=== PATIENT | male | born 1930 | race Caucasian/White ===

== ENCOUNTER 2017-10-06 20:42 | Emergency (ER) | payer MEDICARE, OTHER ==
[~2017-10-06] VITALS: Ht 185.4 cm; Wt 86.4 kg
[~2017-10-06 20:42] MED LIST: DOCU-28 PO; SIME180C34 PO
[2017-10-06 21:30] LABS: BASOPHILS % (AUTO) 0.4 % (0-1); EOSINOPHILS # (AUTO) 0.1 X10'3 (0-0.9); EOSINOPHILS % (AUTO) 1.3 % (0-6); HEMATOCRIT 35.2 % (42.0-52.0); HEMOGLOBIN 11.9 g/dl (14.0-17.9); LYMPHOCYTES # (AUTO) 1.6 X10'3 (1.1-4.8); LYMPHOCYTES % (AUTO) 19.6 % (21-51); MEAN CORPUSCULAR HEMOGLOBIN 30.4 PG (27.0-31.0); MEAN CORPUSCULAR HGB CONC 33.9 % (33.0-36.5); MEAN CORPUSCULAR VOLUME 89.9 FL (78-98); MEAN PLATELET VOLUME 7.7 FL (7.4-10.4); MONOCYTES # (AUTO) 0.6 X10'3 (0-0.9); NEUTROPHILS # (AUTO) 5.7 X10'3 (1.8-7.7); NEUTROPHILS % (AUTO) 70.7 % (42-75); PLATELET COUNT 151 X10'3 (140-440); RED BLOOD COUNT 3.92 X10'6 (4.70-6.10); RED CELL DISTRIBUTION WIDTH 17.5 % (11.5-14.5)
[2017-10-06 21:38] LABS: ALANINE AMINOTRANSFERASE 39 U/L (12-78); ALBUMIN 3.2 G/DL (3.4-5.0); ALBUMIN/GLOBULIN RATIO 0.9 (1.1-1.5); ALKALINE PHOSPHATASE 95 IU/L (46-116); ANION GAP 9 (8-16); ASPARTATE AMINO TRANSFERASE 27 U/L (10-37); BILIRUBIN,TOTAL 0.3 MG/DL (0.1-1.0); BLOOD UREA NITROGEN 15 MG/DL (7-18); CALCIUM 9.2 MG/DL (8.5-10.1); CHLORIDE 101 MMOL/L (99-107); CREATININE 1.66 MG/DL (0.60-1.10); GLUCOSE 123 MG/DL (70-104); POTASSIUM 4.5 MMOL/L (3.5-5.1); SODIUM 135 MMOL/L (135-145); TOTAL PROTEIN 6.9 G/DL (6.4-8.2); eGFR 40 ML/MIN
[2017-10-06 21:54] VITALS: BP 117/66
[2017-10-06] MEDS ORDERED: HYDROcodone/acetaminophen 5mg/325mg tablet PO STA (21:57)
[2017-10-06] MEDS ORDERED: HYDROcodone/acetaminophen 5mg/325mg tablet PO ONE (22:30)
[2017-10-06] MEDS ORDERED: HYDR-565 PO (23:02)
== END 2017-10-06 23:07 | disposition home or self-care (01) ==
LOC: ER 20:43
DX: I97.638 Postprocedural hematoma of a circulatory system organ or structure following other circulatory system procedure (principal); I25.2 Old myocardial infarction; Z95.0 Presence of cardiac pacemaker; Z98.890 Other specified postprocedural states
CPT/HCPCS: 36415; 71046; 80053; 83605; 85025; 87040; 99285

== ENCOUNTER 2018-03-21 14:59 | Emergency (ER) | payer MEDICARE, OTHER ==
[~2018-03-21] VITALS: Ht 185.4 cm; Wt 91.2 kg
[2018-03-21 15:40] LABS: BASOPHILS % (AUTO) 0.2 % (0-1); EOSINOPHILS # (AUTO) 0.1 X10'3 (0-0.9); EOSINOPHILS % (AUTO) 1.8 % (0-6); HEMATOCRIT 34.9 % (42.0-52.0); HEMOGLOBIN 11.4 g/dl (14.0-17.9); LYMPHOCYTES # (AUTO) 0.7 X10'3 (1.1-4.8); LYMPHOCYTES % (AUTO) 13.8 % (21-51); MEAN CORPUSCULAR HEMOGLOBIN 30.9 PG (27.0-31.0); MEAN CORPUSCULAR HGB CONC 32.7 % (33.0-36.5); MEAN CORPUSCULAR VOLUME 94.4 FL (78-98); MEAN PLATELET VOLUME 7.5 FL (7.4-10.4); MONOCYTES # (AUTO) 0.4 X10'3 (0-0.9); MONOCYTES % (AUTO) 7.4 % (2-12); NEUTROPHILS % (AUTO) 76.8 % (42-75); PLATELET COUNT 196 X10'3 (140-440); RED CELL DISTRIBUTION WIDTH 13.3 % (11.5-14.5); WHITE BLOOD COUNT 5.2 X10'3 (4.5-11.0)
[2018-03-21 15:57] LABS: ALANINE AMINOTRANSFERASE 64 U/L (12-78); ALBUMIN 3.4 G/DL (3.4-5.0); ALKALINE PHOSPHATASE 86 IU/L (46-116); ANION GAP 8 (8-16); ASPARTATE AMINO TRANSFERASE 35 U/L (10-37); BILIRUBIN,TOTAL 0.4 MG/DL (0.1-1.0); BLOOD UREA NITROGEN 20 MG/DL (7-18); BUN/CREATININE RATIO 11.8 (5.4-32.0); CALCIUM 8.6 MG/DL (8.5-10.1); CHLORIDE 100 MMOL/L (99-107); CREATININE 1.69 MG/DL (0.60-1.10); GLUCOSE 123 MG/DL (70-104); POTASSIUM 4.3 MMOL/L (3.5-5.1); SODIUM 135 MMOL/L (135-145); TOTAL PROTEIN 6.8 G/DL (6.4-8.2); eGFR 39 ML/MIN
[2018-03-21 16:23] LABS: INR 1.2 INR; PARTIAL THROMBOPLASTIN TIME 32 SECONDS (22-32); PROTHROMBIN TIME 12.4 SECONDS (9.0-12.0)
[2018-03-21] MEDS ORDERED: furosemide 10 MG/1 ML 10ml inj IV ONE (18:30)
[2018-03-21] MEDS ORDERED: FURO40TA4 PO (18:48)
[2018-03-21 19:02] VITALS: BP 110/61
== END 2018-03-21 19:03 | disposition home or self-care (01) ==
LOC: ER 15:00
DX: E87.70 Fluid overload, unspecified (principal); R06.02 Shortness of breath; R07.89 Other chest pain; I25.10 Atherosclerotic heart disease of native coronary artery without angina pectoris; I25.2 Old myocardial infarction; Z95.0 Presence of cardiac pacemaker; Z79.899 Other long term (current) drug therapy
CPT/HCPCS: 36415; 71045; 80053; 83880; 84145; 85025; 85610; 85730; 93005; 96374; 99284; J1940

== ENCOUNTER 2018-04-14 16:43 | Emergency (ER) | payer MEDICARE, OTHER ==
[~2018-04-14] VITALS: Ht 185.4 cm; Wt 89.1 kg
[~2018-04-14 16:43] MED LIST changes: +FURO40TA4 PO
[2018-04-14 18:12] LABS: BASOPHILS % (AUTO) 0.3 % (0-1); EOSINOPHILS # (AUTO) 0.1 X10'3 (0-0.9); HEMOGLOBIN 12.4 g/dl (14.0-17.9); LYMPHOCYTES # (AUTO) 0.8 X10'3 (1.1-4.8); LYMPHOCYTES % (AUTO) 10.9 % (21-51); MEAN CORPUSCULAR HEMOGLOBIN 30.7 PG (27.0-31.0); MEAN CORPUSCULAR HGB CONC 32.6 % (33.0-36.5); MEAN CORPUSCULAR VOLUME 94.2 FL (78-98); MEAN PLATELET VOLUME 7.9 FL (7.4-10.4); MONOCYTES # (AUTO) 0.6 X10'3 (0-0.9); MONOCYTES % (AUTO) 7.8 % (2-12); PLATELET COUNT 230 X10'3 (140-440); RED BLOOD COUNT 4.04 X10'6 (4.70-6.10); RED CELL DISTRIBUTION WIDTH 12.7 % (11.5-14.5); WHITE BLOOD COUNT 7.5 X10'3 (4.5-11.0)
[2018-04-14 18:28] LABS: ALANINE AMINOTRANSFERASE 48 U/L (12-78); ALBUMIN 3.5 G/DL (3.4-5.0); ALBUMIN/GLOBULIN RATIO 0.9 (1.1-1.5); ALKALINE PHOSPHATASE 101 IU/L (46-116); ANION GAP 12 (8-16); ASPARTATE AMINO TRANSFERASE 30 U/L (10-37); BILIRUBIN,TOTAL 0.4 MG/DL (0.1-1.0); BLOOD UREA NITROGEN 21 MG/DL (7-18); BUN/CREATININE RATIO 13.6 (5.4-32.0); CALCIUM 8.6 MG/DL (8.5-10.1); CHLORIDE 95 MMOL/L (99-107); CREATININE 1.54 MG/DL (0.60-1.10); GLUCOSE 99 MG/DL (70-104); POTASSIUM 3.9 MMOL/L (3.5-5.1); SODIUM 133 MMOL/L (135-145); TOTAL CARBON DIOXIDE 26.1 MMOL/L (24-32); TOTAL PROTEIN 7.4 G/DL (6.4-8.2); eGFR 43 ML/MIN
[2018-04-14] MEDS ORDERED: AZIT250T83 PO (18:30)
[2018-04-14] MEDS ORDERED: METH4TAB81 PO (18:30)
[2018-04-14 18:43] VITALS: BP 110/64
== END 2018-04-14 18:47 | disposition home or self-care (01) ==
LOC: ER 16:43
DX: J20.9 Acute bronchitis, unspecified (principal); I50.9 Heart failure, unspecified; I25.10 Atherosclerotic heart disease of native coronary artery without angina pectoris; I25.2 Old myocardial infarction; Z90.5 Acquired absence of kidney; Z95.0 Presence of cardiac pacemaker
CPT/HCPCS: 36415; 71046; 80053; 83605; 85025; 87040; 99284

== ENCOUNTER 2019-05-08 16:36 | Inpatient (IN) | payer MEDICARE, OTHER ==
[~2019-05-08] VITALS: Ht 185.4 cm; Wt 93.3 kg
[~2019-05-08 16:36] MED LIST changes: +AMIO200T61 PO; +ATOR80TA PO; +CHOL10002 PO; -DOCU-28 PO; +FINA5TAB11 PO; -FURO40TA4 PO; +LOSA25TA96 PO; +METO50TA7 PO; +NITR0.4T51 SL; +RIVA15TA PO; -SIME180C34 PO; +SPIR25TA5 PO; +TRAZ-251 PO
[2019-05-08 17:16] LABS: BASOPHILS % (AUTO) 0.3 % (0-1); EOSINOPHILS % (AUTO) 0.5 % (0-6); HEMATOCRIT 35.8 % (42.0-52.0); HEMOGLOBIN 11.9 g/dl (14.0-17.9); LYMPHOCYTES # (AUTO) 0.7 X10'3 (1.1-4.8); LYMPHOCYTES % (AUTO) 11.2 % (21-51); MEAN CORPUSCULAR HEMOGLOBIN 30.7 PG (27.0-31.0); MEAN CORPUSCULAR HGB CONC 33.2 g/dL (33.0-36.5); MEAN CORPUSCULAR VOLUME 92.4 FL (78-98); MEAN PLATELET VOLUME 7.9 FL (7.4-10.4); MONOCYTES # (AUTO) 0.5 X10'3 (0-0.9); MONOCYTES % (AUTO) 8.1 % (2-12); NEUTROPHILS # (AUTO) 5.2 X10'3 (1.8-7.7); NEUTROPHILS % (AUTO) 79.9 % (42-75); PLATELET COUNT 182 X10'3 (140-440); RED BLOOD COUNT 3.88 X10'6 (4.70-6.10); RED CELL DISTRIBUTION WIDTH 13.5 % (11.5-14.5); WHITE BLOOD COUNT 6.5 X10'3 (4.5-11.0)
[2019-05-08 17:30] LABS: ALANINE AMINOTRANSFERASE 49 U/L (12-78); ALBUMIN 3.7 G/DL (3.4-5.0); ALBUMIN/GLOBULIN RATIO 1.2 (1.1-1.5); ALKALINE PHOSPHATASE 90 IU/L (46-116); ANION GAP 6 (8-16); ASPARTATE AMINO TRANSFERASE 36 U/L (10-37); BILIRUBIN,TOTAL 0.5 MG/DL (0.1-1.0); BLOOD UREA NITROGEN 22 MG/DL (7-18); BUN/CREATININE RATIO 12.9 (5.4-32.0); CALCIUM 8.7 MG/DL (8.5-10.1); CHLORIDE 98 MMOL/L (99-107); GLUCOSE 96 MG/DL (70-104); POTASSIUM 3.8 MMOL/L (3.5-5.1); SODIUM 133 MMOL/L (135-145); TOTAL CARBON DIOXIDE 29.4 MMOL/L (24-32); TOTAL PROTEIN 6.9 G/DL (6.4-8.2); eGFR 38 ML/MIN
[2019-05-08] MEDS ORDERED: morphine 2 MG/ML inj. syringe IV PRN ×2 (17:55)
[2019-05-08] MEDS ORDERED: acetaminophen 325mg tablet PO PRN (17:55)
[2019-05-08] MEDS ORDERED: magnesium hydroxide 30ml (MOM) UD suspension PO PRN (17:55)
[2019-05-08] MEDS ORDERED: ondansetron/PF 4mg/2ml inj IV PRN (17:55)
[2019-05-08] MEDS ORDERED: mag hydrox/Alum hydrox/simeth 30ml oral suspension PO PRN (17:55)
[2019-05-08] MEDS ORDERED: FURO-150 PO ×2 (18:06→18:08)
[2019-05-08] MEDS ORDERED: furosemide 20 MG/2 ML vial IV SCH (20:00)
[2019-05-08] MEDS: acetaminophen 325mg tablet PO PRN (20:45)
[2019-05-08 22:00] VITALS: BP 104/57
[2019-05-09 02:00] VITALS: BP 103/54
[2019-05-09] MEDS: acetaminophen 325mg tablet PO PRN (04:50)
[2019-05-09 05:34] LABS: ALBUMIN 3.3 G/DL (3.4-5.0); ANION GAP 8 (8-16); BLOOD UREA NITROGEN 22 MG/DL (7-18); BUN/CREATININE RATIO 13.3 (5.4-32.0); CALCIUM 8.9 MG/DL (8.5-10.1); CHLORIDE 101 MMOL/L (99-107); CREATININE 1.65 MG/DL (0.60-1.10); GLUCOSE 97 MG/DL (70-104); POTASSIUM 3.5 MMOL/L (3.5-5.1); SODIUM 135 MMOL/L (135-145); TOTAL CARBON DIOXIDE 26.4 MMOL/L (24-32); eGFR 40 ML/MIN
[2019-05-09 05:51] LABS: BASOPHILS % (AUTO) 0.4 % (0-1); EOSINOPHILS # (AUTO) 0.1 X10'3 (0-0.9); EOSINOPHILS % (AUTO) 1.2 % (0-6); HEMATOCRIT 33.3 % (42.0-52.0); HEMOGLOBIN 11.2 g/dl (14.0-17.9); LYMPHOCYTES # (AUTO) 0.8 X10'3 (1.1-4.8); LYMPHOCYTES % (AUTO) 18.4 % (21-51); MEAN CORPUSCULAR HEMOGLOBIN 31.2 PG (27.0-31.0); MEAN CORPUSCULAR HGB CONC 33.8 g/dL (33.0-36.5); MEAN CORPUSCULAR VOLUME 92.5 FL (78-98); MEAN PLATELET VOLUME 7.8 FL (7.4-10.4); MONOCYTES # (AUTO) 0.4 X10'3 (0-0.9); MONOCYTES % (AUTO) 9.1 % (2-12); NEUTROPHILS % (AUTO) 70.9 % (42-75); PLATELET COUNT 145 X10'3 (140-440); RED CELL DISTRIBUTION WIDTH 13.6 % (11.5-14.5); WHITE BLOOD COUNT 4.3 X10'3 (4.5-11.0)
[2019-05-09 06:00] VITALS: BP 119/65
--- NOTE | 2019-05-09 06:21 | NUR ---
Problems reprioritized. Patient report given to Duncan, questions answered & plan of care reviewed with .
--- NOTE | 2019-05-09 06:57 | NUR ---
Patient in room [facility] 310. I have received report from Keron WOOD and had the opportunity to ask questions and assume patient care.
[2019-05-09] MEDS ORDERED: traZODone 50mg tablet PO PRN (08:30)
[2019-05-09] MEDS ORDERED: nitroGLYCERIN 0.4mg SUBLingual tab SL PRN (08:30)
[2019-05-09] MEDS: furosemide 20 MG/2 ML vial IV SCH ×2 (09:38→20:28)
[2019-05-09] MEDS: spironolactone 25 MG tablet PO SCH (09:43)
[2019-05-09] MEDS: losartan 25mg tablet PO SCH (09:44)
[2019-05-09 11:00] VITALS: BP 129/66
[2019-05-09] MEDS: HYDROcodone/acetaminophen 5mg/325mg tablet PO PRN ×2 (11:59→17:42)
[2019-05-09] MEDS: finasteride 5mg tablet PO SCH (12:00)
[2019-05-09 15:00] VITALS: BP 136/53
[2019-05-09] MEDS ORDERED: VOLTAREN 1% TOP PRN (17:00)
[2019-05-09 18:00] VITALS: BP 108/52
[2019-05-09] MEDS ORDERED: rivaroxaban 15mg tablet PO SCH (18:00)
[2019-05-09] MEDS ORDERED: amiodarone 200mg tablet PO SCH (21:00)
[2019-05-09] MEDS ORDERED: atorvastatin 20mg tablet PO SCH (21:00)
[2019-05-09] MEDS ORDERED: metoprolol succinate 25mg (24-HOUR) SR. Tablet PO SCH (21:00)
[2019-05-09 22:00] VITALS: BP 104/60
[2019-05-10 02:00] VITALS: BP 110/59
[2019-05-10 05:27] LABS: ALBUMIN 3.2 G/DL (3.4-5.0); ANION GAP 5 (8-16); BLOOD UREA NITROGEN 20 MG/DL (7-18); BUN/CREATININE RATIO 13.5 (5.4-32.0); CALCIUM 8.7 MG/DL (8.5-10.1); CHLORIDE 102 MMOL/L (99-107); CREATININE 1.48 MG/DL (0.60-1.10); GLUCOSE 96 MG/DL (70-104); POTASSIUM 3.7 MMOL/L (3.5-5.1); SODIUM 137 MMOL/L (135-145); TOTAL CARBON DIOXIDE 29.8 MMOL/L (24-32); eGFR 45 ML/MIN
[2019-05-10 05:42] LABS: BASOPHILS % (AUTO) 0.7 % (0-1); EOSINOPHILS # (AUTO) 0.1 X10'3 (0-0.9); EOSINOPHILS % (AUTO) 2.2 % (0-6); HEMATOCRIT 33.8 % (42.0-52.0); HEMOGLOBIN 11.5 g/dl (14.0-17.9); LYMPHOCYTES # (AUTO) 0.7 X10'3 (1.1-4.8); LYMPHOCYTES % (AUTO) 16.5 % (21-51); MEAN CORPUSCULAR HEMOGLOBIN 31.2 PG (27.0-31.0); MEAN CORPUSCULAR HGB CONC 33.9 g/dL (33.0-36.5); MEAN CORPUSCULAR VOLUME 91.9 FL (78-98); MEAN PLATELET VOLUME 8.3 FL (7.4-10.4); MONOCYTES # (AUTO) 0.3 X10'3 (0-0.9); MONOCYTES % (AUTO) 7.5 % (2-12); NEUTROPHILS # (AUTO) 3.2 X10'3 (1.8-7.7); NEUTROPHILS % (AUTO) 73.1 % (42-75); PLATELET COUNT 149 X10'3 (140-440); RED BLOOD COUNT 3.68 X10'6 (4.70-6.10); RED CELL DISTRIBUTION WIDTH 13.3 % (11.5-14.5); WHITE BLOOD COUNT 4.4 X10'3 (4.5-11.0)
[2019-05-10 06:00] VITALS: BP 103/58
--- NOTE | 2019-05-10 06:14 | NUR ---
Patient in room [facility] 310. I have received report from yojana Carmona and had the opportunity to ask questions and assume patient care.
--- NOTE | 2019-05-10 06:42 | NUR ---
Problems reprioritized. Patient report given, questions answered & plan of care reviewed with Katheryn Beebe.
[2019-05-10] MEDS: losartan 25mg tablet PO SCH (07:33)
[2019-05-10] MEDS: finasteride 5mg tablet PO SCH (07:34)
[2019-05-10] MEDS: spironolactone 25 MG tablet PO SCH (07:34)
[2019-05-10] MEDS: HYDROcodone/acetaminophen 5mg/325mg tablet PO PRN ×2 (07:34→11:55)
[2019-05-10] MEDS: furosemide 20 MG/2 ML vial IV SCH (07:35)
[2019-05-10] MEDS ORDERED: losartan 25mg tablet PO SCH (08:00)
[2019-05-10] MEDS ORDERED: vitamin D (cholecalciferol) 1,000 unit tablet PO SCH (08:00)
[2019-05-10] MEDS ORDERED: spironolactone 25 MG tablet PO SCH (08:00)
[2019-05-10] MEDS ORDERED: finasteride 5mg tablet PO SCH (08:00)
[2019-05-10] MEDS ORDERED: FURO-150 PO (09:07)
== END 2019-05-10 11:57 | disposition home or self-care (01) | DRG 291 ==
LOC: ER 16:37 → ED HOLD 17:53 → EDBEDREQ 18:42 → MED 3N 19:25
PROVIDERS: ADMIT Internal Medicine; ATTEND Family Medicine
DX: I13.0 Hypertensive heart and chronic kidney disease with heart failure and stage 1 through stage 4 chronic kidney disease, or unspecified chronic kidney disease (principal); I50.43 Acute on chronic combined systolic (congestive) and diastolic (congestive) heart failure; J96.01 Acute respiratory failure with hypoxia; N17.0 Acute kidney failure with tubular necrosis; D50.9 Iron deficiency anemia, unspecified; E78.5 Hyperlipidemia, unspecified; G47.00 Insomnia, unspecified; I25.10 Atherosclerotic heart disease of native coronary artery without angina pectoris; I48.0 Paroxysmal atrial fibrillation; F32.9 Major depressive disorder, single episode, unspecified; M11.211 Other chondrocalcinosis, right shoulder; N18.3 Chronic kidney disease, stage 3 (moderate); Z79.01 Long term (current) use of anticoagulants; I25.2 Old myocardial infarction; Z86.79 Personal history of other diseases of the circulatory system; Z87.891 Personal history of nicotine dependence; Z79.899 Other long term (current) drug therapy
CPT/HCPCS: 36415; 71045; 73030; 80048; 80053; 83880; 84484; 85025; 87081; 93005; 93306; 96374; 99285; G0378; J1940; J2270

== ENCOUNTER 2019-11-05 15:01 | Emergency (ER) | payer OTHER, MEDICARE ==
[~2019-11-05] VITALS: Ht 185.4 cm; Wt 84.1 kg
[~2019-11-05 15:01] MED LIST changes: +FURO-150 PO
[2019-11-05 15:49] LABS: BASOPHILS % (AUTO) 0.6 % (0-1); EOSINOPHILS # (AUTO) 0.1 X10'3 (0-0.9); EOSINOPHILS % (AUTO) 1.5 % (0-6); HEMATOCRIT 38.1 % (42.0-52.0); HEMOGLOBIN 12.3 g/dl (14.0-17.9); LYMPHOCYTES # (AUTO) 0.9 X10'3 (1.1-4.8); LYMPHOCYTES % (AUTO) 17.2 % (21-51); MEAN CORPUSCULAR HEMOGLOBIN 29.7 PG (27.0-31.0); MEAN CORPUSCULAR HGB CONC 32.3 g/dL (33.0-36.5); MEAN CORPUSCULAR VOLUME 92.2 FL (78-98); MEAN PLATELET VOLUME 8.4 FL (7.4-10.4); MONOCYTES # (AUTO) 0.4 X10'3 (0-0.9); MONOCYTES % (AUTO) 7.4 % (2-12); NEUTROPHILS # (AUTO) 3.8 X10'3 (1.8-7.7); NEUTROPHILS % (AUTO) 73.3 % (42-75); PLATELET COUNT 146 X10'3 (140-440); RED BLOOD COUNT 4.13 X10'6 (4.70-6.10); RED CELL DISTRIBUTION WIDTH 15.3 % (11.5-14.5); WHITE BLOOD COUNT 5.2 X10'3 (4.5-11.0)
[2019-11-05 16:09] LABS: ALANINE AMINOTRANSFERASE 59 U/L (12-78); ALBUMIN 3.5 G/DL (3.4-5.0); ALKALINE PHOSPHATASE 97 IU/L (46-116); ANION GAP 9 (8-16); ASPARTATE AMINO TRANSFERASE 46 U/L (10-37); BILIRUBIN,TOTAL 0.5 MG/DL (0.1-1.0); BLOOD UREA NITROGEN 27 MG/DL (7-18); BUN/CREATININE RATIO 14.4 (5.4-32.0); CALCIUM 8.8 MG/DL (8.5-10.1); CHLORIDE 100 MMOL/L (99-107); CREATININE 1.87 MG/DL (0.60-1.10); GLUCOSE 105 MG/DL (70-104); POTASSIUM 4.5 MMOL/L (3.5-5.1); SODIUM 133 MMOL/L (135-145); TOTAL CARBON DIOXIDE 24.5 MMOL/L (24-32); TOTAL PROTEIN 7.1 G/DL (6.4-8.2); eGFR 34 ML/MIN
[2019-11-05] MEDS ORDERED: furosemide 10 MG/1 ML 10ml inj IV ONE (16:50)
[2019-11-05] MEDS ORDERED: FURO40TA4 PO (17:37)
[2019-11-05] MEDS ORDERED: furosemide 20MG tablet PO ONE (17:55)
[2019-11-05 18:06] VITALS: BP 110/64
== END 2019-11-05 18:08 | disposition home or self-care (01) ==
LOC: ER 15:02
DX: I50.21 Acute systolic (congestive) heart failure (principal); I25.10 Atherosclerotic heart disease of native coronary artery without angina pectoris; I11.0 Hypertensive heart disease with heart failure; I25.2 Old myocardial infarction; F32.9 Major depressive disorder, single episode, unspecified; Z95.0 Presence of cardiac pacemaker; Z98.890 Other specified postprocedural states; Z79.01 Long term (current) use of anticoagulants; Z79.899 Other long term (current) drug therapy
CPT/HCPCS: 36415; 71045; 80053; 83880; 84484; 85025; 93005; 99285